=== PATIENT | female | born 1940 | race Caucasian/White ===

== ENCOUNTER 2017-02-03 23:53 | Emergency (ER) | payer MEDICARE ==
[2017-02-03 17:21] LABS: BASOPHILS 0.3 %; BASOPHILS ABSOLUTE 0.02 10/3/uL (0.0-0.16); EOSINOPHILS 5.2 %; EOSINOPHILS ABSOLUTE 0.35 10/3/uL (0.0-0.53); HEMATOCRIT 37.7 % (36.0-48.0); HEMOGLOBIN 12.6 g/dL (12.0-16.0); IMMATURE GRANULOCYTES 0.3 %; IMMATURE GRANULOCYTES ABSOLUTE 0.02 10/3/uL (0.0-0.11); LYMPHOCYTES 24.3 %; LYMPHOCYTES ABSOLUTE 1.62 10/3/uL (0.67-4.30); MEAN CORPUS HGB CONC 33.4 g/dL (32.0-36.0); MEAN CORPUSCULAR HEMOGLOB 31.5 pg (26.0-34.0); MEAN CORPUSCULAR VOLUME 94.3 fL (80-100); MEAN PLATELET VOLUME 8.4 fL (9.2-13.0); NEUTROPHILS 60.9 %; NEUTROPHILS ABSOLUTE 4.06 10/3/uL (2.02-8.40); PLATELET COUNT 216 10/3/uL (150-400); RBC DISTRIBUTION WIDTH 13.4 % (12.0-16.0); WHITE BLOOD CELLS 6.7 10/3/uL (4.5-10.5)
[2017-02-03 17:22] LABS: MANUAL DIFF NO %
[2017-02-03 17:28] LABS: PROTIME (NOT ORD) 12.7 SEC (12.0-14.5)
[2017-02-03 17:29] LABS: PARTIAL THROMBO TIME 29.6 SEC (22.5-37.2)
[2017-02-03 17:40] LABS: CALCIUM, SERUM 9.5 MG/DL (8.5-10.4); CHEST PAIN PROFILE TAT 0 Hrs 23 Mins; CHLORIDE, SERUM 105 MMOL/L (96-112); CO2 (CARBON DIOXIDE) 28 MMOL/L (24-34); CREATININE 1.23 MG/DL (0.55-1.02); GFR AFRICAN AMERICAN 49 ML/MIN (>=60); GFR NON AFRICAN AMERICAN 43 ML/MIN (>=60); POTASSIUM, SERUM 3.5 MMOL/L (3.5-5.3); SODIUM, SERUM 142 MMOL/L (135-148); TROPONIN I <0.02 NG/ML (<0.05)
[2017-02-03 17:43] LABS: BUN (BLOOD UREA NITROGEN) 14 MG/DL (6-23); GLUCOSE, SERUM 99 MG/DL (60-99)
[~2017-02-03 23:53] MED LIST: ACTONEL150 MG PO; ARIMIDEX1 PO; ATACAND16 PO; BYSTOLIC5 MG PO; FISH-EPA1000 MG PO; GLUCCHONDR PO; HALF81 PO; K-PHO1 OR; MAGNESIUM; MULTIVITAMI1 PO; Magnesium; OS500+D PO; POTASSIUM95 MG PO; PRAV10 PO; PRAVAC PO; PRILO PO; VITAMIN D1000 UNI1 PO; VITAMIN D31000 UNIT PO; VITC500 PO; Vitamin D PO; ZETIA PO
[2017-05-05] MEDS ORDERED: DIOV80 PO (09:48)
[2017-05-05] MEDS ORDERED: [UNRECOGNIZED DRUG - OTHER] (09:51)
[2017-05-05] MEDS ORDERED: CURCUMIN (09:52)
[2017-05-05] MEDS ORDERED: MEDS (10:13)
[2017-06-29] MEDS ORDERED: POTASSIUM CITR15 MEQ PO (02:28)
== END 2017-02-04 00:29 | disposition home or self-care (01) ==
LOC: ER 23:53
PROVIDERS: Emergency Medicine
DX: M62.838 Other muscle spasm (principal); J45.909 Unspecified asthma, uncomplicated; I10 Essential (primary) hypertension; K21.9 Gastro-esophageal reflux disease without esophagitis; Z79.899 Other long term (current) drug therapy; Z79.82 Long term (current) use of aspirin
CPT/HCPCS: 71020; 72040; 80048; 83735; 84484; 85025; 85610; 85730; 93005; 99284; A9270-GY